=== PATIENT | male | born 1970 | race African-American/Black ===

== ENCOUNTER 2017-11-04 10:40 | Emergency (ER) | payer OTHER ==
[~2017-11-04] VITALS: Ht 193 cm; Wt 136.1 kg
--- NOTE | 2017-11-04 11:19 | ED GI/GU/ABDOMINAL COMPLAINT ---
History of Present Illness General Chief Complaint: Abdominal Pain/Flank Pain Stated Complaint: WEAKNESS/ELAVATED BP Source: patient Exam Limitations: no limitations Vital Signs & Intake/Output Vital Signs & Intake/Output Vital Signs Date Time Temp Pulse Resp B/P B/P Pulse O2 O2 Flow FiO2 Mean Ox Delivery Rate 11/04 1306 98 Room Air 11/04 1046 97.9 89 20 166/106 97 Room Air Allergies Coded Allergies: NO KNOWN ALLERGIES (05/18/12) Reconcile Medications Dicyclomine HCl 10 MG CAPSULE 1 CAP PO TID PRN ABDOMINAL PAIN Ondansetron (Zofran Odt) 4 MG TAB.RAPDIS 1 TAB SL TID PRN NAUSEA Triage Note: C/O LOWER ABDOMINAL PAIN WITH NAUSEA, VOMITING, AND DIARRHEA X 3 DAYS. SENT BY [facility] FOR EVLAUATION AND HIGH BP. (188/100)/ Triage Nurses Notes Reviewed? yes Onset: Abrupt Duration: day(s): (3), constant, continues in ED, getting worse Timing: single episode today Quality/Severity: cramping Severity Numbers: 7 Location: generalized abdomen (lower abdomen) Radiation: no radiation Activities at Onset: none Prior Abdominal Problems: none Past Sexual History: Unobtainable at this time No Modifying Factors: none Modifying Factors: Worsens With: movement, palpation. Associated Symptoms: abdominal pain, diarrhea, nausea/vomiting HPI: 47-year-old male history of hypertension since her evaluation of nausea vomiting diarrhea abdominal pain and elevated blood pressure. Patient reports symptoms have been going on for the past 3 days and been persistent. He reports the pain is located mostly in his lower abdomen described as cramping. He reports multiple episodes of watery diarrhea without blood as well as nausea and multiple symptoms of vomiting. He has been able tolerate some fluids. He was referred to the ER from an urgent care because his blood pressure was elevated to 180s over 100s. He denies any chest pain shortness of breath changes in vision he does report a mild headache. He is currently not taking any medicine for his blood pressure because been controlled. He was treated for hypertension previously with oral meds. No recent abdominal surgeries. He's never had this pain before. No recent antibiotic use recent travel sick contacts. He is not taking any medicine for his symptoms. (Trenton Hamm) Past History Travel History Traveled to [place] past 21 day No Medical History Any Pertinent Medical History? see below for history Neurological: NONE EENT: NONE Cardiovascular: hypertension Respiratory: NONE Gastrointestinal: NONE Hepatic: NONE Renal: NONE Musculoskeletal: NONE Psychiatric: NONE Endocrine: NONE Surgical History Surgical History: non-contributory Psychosocial History What is your primary language Hebrew Tobacco Use: Current Daily Use Daily Tobacco Use Amount/Type: => 5 Cigarettes daily ETOH Use: occasional use Family History Hx Contributory? No (Trenton Hamm) Review of Systems Review of Systems Constitutional: Reports: no symptoms. EENTM: Reports: no symptoms. Respiratory: Reports: no symptoms. Cardiovascular: Reports: no symptoms. GI: Reports: see HPI, abdominal pain, nausea, vomiting. Genitourinary: Reports: no symptoms. Musculoskeletal: Reports: no symptoms. Skin: Reports: no symptoms. Neurological/Psychological: Reports: headache. Hematologic/Endocrine: Reports: no symptoms. Immunologic/Allergic: Reports: no symptoms. All Other Systems: Reviewed and Negative (Trenton Hamm) Physical Exam Physical Exam General Appearance: well developed/nourished, no apparent distress, alert, awake Head: atraumatic, normal appearance Eyes: Bilateral: normal appearance, PERRL, EOMI. Ears, Nose, Throat, Mouth: hearing grossly normal, moist mucous membrane Neck: normal inspection, supple, full range of motion Respiratory: normal breath sounds, chest non-tender, no respiratory distress, lungs clear Cardiovascular: regular rate/rhythm, normal peripheral pulses Peripheral Pulses: 2+ radial (R), 2+ radial (L) Gastrointestinal: normal bowel sounds, soft, no organomegaly, tenderness ( diffuse worse RLQ, LLQ) Back: normal inspection, normal range of motion, no vertebral tenderness Extremities: normal range of motion Neurologic/Psych: no motor/sensory deficits, awake, alert, oriented x 3, normal gait Skin: intact, normal color, warm/dry Core Measures ACS in differential dx? No Sepsis Present: No Sepsis Focused Exam Completed? No (Trenton Hamm) Progress Differential Diagnosis: appendicitis, biliary colic, bowel obstruction, colon cancer, cholecystitis, diverticulitis, gastritis, ischemic bowel, inflamm bowel dis, pancreatitis, peptic ulcer, PUD/GERD, pyelonephritis, ureterolithiasis, urinary retention, urethritis, UTI/pyelo Plan of Care: Orders Procedure Date/time Status Add-on Test (ER Only) 11/04 1117 Active URINALYSIS 11/04 1059 Complete TROPONIN LEVEL 11/04 1059 Complete LIPASE 11/04 1059 Complete COMPREHENSIVE METABOLIC PANEL 11/04 1059 Complete CBC WITHOUT DIFFERENTIAL 11/04 1059 Complete EKG 11/04 1059 Active Current Medications Sig/Fernando Start time Last Medication Dose Stop Time Status Admin Acetaminophen 1,000 MG ONCE ONE 11/04 1130 CAN (Ofirmev) 11/04 1144 N/A 1 UNIT (No Carrier) Ondansetron HCl 4 MG ONCE ONE 11/04 1130 CAN (Zofran) 11/04 1131 Laboratory Tests 11/04/17 1343: Anion Gap 10, Estimated GFR > 60, BUN/Creatinine Ratio 7.0, Glucose 101 H, Calcium 9.4, Total Bilirubin 0.5, AST 31, ALT 30, Alkaline Phosphatase 58, Troponin I < 0.01, Total Protein 7.1, Albumin 4.0, Globulin 3.1, Albumin/ Globulin Ratio 1.3, Lipase 62, CBC w Diff NO MAN DIFF REQ, RBC 4.95, MCV 85.4, MCH 28.1, MCHC 33.0, RDW 13.4, MPV 8.6, Gran % 70.5, Lymphocytes % 22.5, Monocytes % 5.9, Eosinophils % 0.3, Basophils % 0.8, Absolute Granulocytes 6.6 H, Absolute Lymphocytes 2.1, Absolute Monocytes 0.6, Absolute Eosinophils 0, Absolute Basophils 0.1 11/04/17 1154: Urine Color YEL, Urine Clarity CLEAR, Urine pH 7.5, Ur Specific [place] 1.010, Urine Protein NEG, Urine Ketones NEG, Urine Nitrite NEG, Urine Bilirubin NEG, Urine Urobilinogen 0.2, Ur Leukocyte Esterase NEG, Ur Microscopic EXAM NOT REQUIRED, Urine Hemoglobin NEG, Urine Glucose NEG Patient is here with nausea vomiting diarrhea and lower abdominal pain and elevated blood pressure. Denies any chest pain or shortness of breath. He is not taking any medicine for blood pressure currently. On exam his initial blood pressure here is 160s over 100s. He has bilateral quadrant lower abdominal tenderness. Patient is a very difficult stick. Multiple attempts were made to get blood that were unsuccessful. A CT scan without contrast was ordered as well as an EKG. The right femoral vein was accessed for venous blood draw. Patient tolerated well. Labs are sent. Patient is medicated with IM Toradol. CT scan is negative for any acute findings. he has not had any nausea vomiting or diarrhea here. His labs are not showing any acute findings. The pressure was improved to 150s over 90s. Reviewed all results of today's visit with patient. Advised him to follow-up with the primary care doctor for blood pressure management. Increase fluids Zofran and Bentyl as needed. Discussed return precautions. Patient agrees the plan Diagnostic Imaging: Viewed by Me: CT Scan. Discussed w/RAD: CT Scan. Radiology Impression: PATIENT: CLINT MONTANEZ PRESENT AGE : 47 PATIENT ACCOUNT NO: [id number] : 72 LOCATION: [facility] ORDERING PHYSICIAN: Trenton JOVEL SERVICE DATE: 11/04/17 EXAM TYPE: CAT - CT ABD & PELVIS W/O IV CONTRAS EXAMINATION: CT ABDOMEN AND PELVIS WITHOUT CONTRAST CLINICAL INFORMATION: Lower abdomen pain. Nausea, vomiting, diarrhea Unable to achieve IV access COMPARISON: None TECHNIQUE: Multidetector volumetric imaging was performed from the superior aspect of the liver through the pubic symphysis. Sagittal and coronal reformatted images were obtained on the technologist's workstation. DLP: 820 mGy-cm FINDINGS: LUNG BASES: There are a few minor juxtapleural opacities in the posterior costophrenic sulcus region bilaterally. LIVER, GALLBLADDER, AND BILIARY TREE: No suspicious abnormality in the liver. The liver contour appears smooth. There is no opaque gallstone. There is no biliary dilation. PANCREAS: No suspicious abnormality SPLEEN: Within normal limits ADRENAL GLANDS: Within normal limits KIDNEYS AND URETERS: There is no dilation of the urinary collecting system. There is no suspicious renal mass. There is no opaque urinary calculus. BLADDER: The bladder is not well-distended. No focal abnormality GASTROINTESTINAL TRACT: There is no definite colonic wall thickening. No localized pericolonic fat stranding. The appendix is normal. There is no small bowel dilation. No definite abnormality the stomach. ABDOMINAL WALL: Small amount of fat protrudes into the umbilicus. No significant inguinal hernia. LYMPH NODES: There are some nonspecific inguinal lymph nodes. There are no enlarged retroperitoneal lymph nodes. There is no free intraperitoneal fluid VASCULAR: There is no abdominal aortic aneurysm. PELVIC VISCERA: No suspicious abnormality OSSEOUS STRUCTURES: No suspicious focal lesion. Nonspecific sclerosis on each side of the pubic symphysis, likely osteitis IMPRESSION: No contrast. No definite etiology for pain demonstrated. DICTATED BY: Ramón Allen MD DATE/TIME DICTATED:11/04/171399 COLORER HIDES AND SKINS:JOHNNA DATE/TIME TRANSCRIBED:11/04/171399 CONFIDENTIAL, DO NOT COPY WITHOUT APPROPRIATE AUTHORIZATION. <Electronically signed in Other Vendor System> SIGNED BY: Ramón Allen MD 11/04/17 1410 Initial ED EKG: normal sinus rhythm, no ST T wave changes, 1ST DEGREE AV BLOCK (Trenton Hamm) Departure Departure Disposition: HOME OR SELF CARE Condition: Stable Clinical Impression Primary Impression: Gastroenteritis Referrals: Charis Feritas APRN (PCP/Family) Additional Instructions: Rest and drink plenty of fluids. Eat bland foods like bananas rice applesauce and toast. Zofran for nausea and Bentyl for abdominal pain. You need to follow -up with the primary care doctor to have your blood pressure rechecked. He may need medicine to control her blood pressure. If you have worsening pain unable tolerate fluids fever or any other concerns return immediately. Departure Forms: Customer Survey General Discharge Information Prescriptions: Current Visit Scripts Ondansetron (Zofran Odt) 1 TAB SL TID PRN NAUSEA #10 TAB Dicyclomine HCl 1 CAP PO TID PRN ABDOMINAL PAIN #30 CAP (Trenton Hamm) PA/RETAIL BRAND AMBASSADOR Co-Sign Statement Statement: ED Attending supervision documentation- [] I saw and evaluated the patient. I have also reviewed all the pertinent lab results and diagnostic results. I agree with the findings and the plan of care as documented in the PA's/RETAIL BRAND AMBASSADOR's documentation. [x] I have reviewed the ED Record and agree with the PA's/RETAIL BRAND AMBASSADOR's documentation. [] Additions or exceptions (if any) to the PAs/RETAIL BRAND AMBASSADOR's note and plan are summarized below: [] (Jaciel Eduardo DO)
[2017-11-04 13:57] LABS: ABSOLUTE BASOPHIL COUNT 0.1 /CUMM (0.0-0.2); ABSOLUTE EOSINOPHIL COUNT 0 /CUMM (0.0-0.7); ABSOLUTE GRANULOCYTE CT 6.6 /CUMM (1.4-6.5); ABSOLUTE LYMPH COUNT 2.1 /CUMM (1.2-3.4); ABSOLUTE MONOCYTE COUNT 0.6 /CUMM (0.10-0.60); BASOPHIL % 0.8 % (0.0-2.0); EOSINOPHIL % 0.3 % (0-5); GRANULOCYTE % 70.5 % (42.2-75.2); HEMATOCRIT 42.3 % (42-52); MEAN CORPUSCULAR HGB 28.1 PG (27.0-31.0); MEAN CORPUSCULAR VOLUME 85.4 FL (80.0-94.0); MEAN PLATELET VOLUME 8.6 FL (7.4-10.4); PLATELET COUNT 290 /CUMM (130-400); RBC DISTRIBUTION WIDTH 13.4 % (11.5-14.5); RED BLOOD CELL CT 4.95 /CUMM (4.70-6.10); WHITE BLOOD CELL COUNT 9.4 /CUMM (4.8-10.8)
--- NOTE | 2017-11-04 14:10 | CT SCAN REPORT ---
EXAMINATION: CT ABDOMEN AND PELVIS WITHOUT CONTRAST CLINICAL INFORMATION: Lower abdomen pain. Nausea, vomiting, diarrhea Unable to achieve IV access COMPARISON: None TECHNIQUE: Multidetector volumetric imaging was performed from the superior aspect of the liver through the pubic symphysis. Sagittal and coronal reformatted images were obtained on the technologist's workstation. DLP: 820 mGy-cm FINDINGS: LUNG BASES: There are a few minor juxtapleural opacities in the posterior costophrenic sulcus region bilaterally. LIVER, GALLBLADDER, AND BILIARY TREE: No suspicious abnormality in the liver. The liver contour appears smooth. There is no opaque gallstone. There is no biliary dilation. PANCREAS: No suspicious abnormality SPLEEN: Within normal limits ADRENAL GLANDS: Within normal limits KIDNEYS AND URETERS: There is no dilation of the urinary collecting system. There is no suspicious renal mass. There is no opaque urinary calculus. BLADDER: The bladder is not well-distended. No focal abnormality GASTROINTESTINAL TRACT: There is no definite colonic wall thickening. No localized pericolonic fat stranding. The appendix is normal. There is no small bowel dilation. No definite abnormality the stomach. ABDOMINAL WALL: Small amount of fat protrudes into the umbilicus. No significant inguinal hernia. LYMPH NODES: There are some nonspecific inguinal lymph nodes. There are no enlarged retroperitoneal lymph nodes. There is no free intraperitoneal fluid VASCULAR: There is no abdominal aortic aneurysm. PELVIC VISCERA: No suspicious abnormality OSSEOUS STRUCTURES: No suspicious focal lesion. Nonspecific sclerosis on each side of the pubic symphysis, likely osteitis IMPRESSION: No contrast. No definite etiology for pain demonstrated.
[2017-11-04] MEDS ORDERED: ZOFRAN ODT4 M1 SL (14:44)
[2017-11-04] MEDS ORDERED: DICYCLOMINE HCL10 M1 PO (14:44)
[2017-11-04 14:49] VITALS: BP 152/88
== END 2017-11-04 15:10 ==
LOC: ERH 10:40
PROVIDERS: Physician Assistant Medical
DX: K52.9 Noninfective gastroenteritis and colitis, unspecified (principal)
CPT/HCPCS: 74176; 81003; 93005; 93010; 96372; J1885; J2001